=== PATIENT | female | born 2000 | race Caucasian/White ===

== ENCOUNTER 2022-06-06 16:39 | Emergency (ER) | payer OTHER, SELFPAY ==
[2022-06-06 17:02] VITALS: BP 137/86; PULSE 91; RESP 18; TEMP 36.4; O2SAT 99
--- NOTE | 2022-06-06 17:05 | ED.URI ---
HPI - URI/Sore Throat General Chief Complaint: Upper Respiratory Infection Stated Complaint: Sore Throat Time Seen by Provider: 06/06/22 17:05 History of Present Illness HPI Narrative: Merari Leger is a 21 yo female with no PMH who comes to here for sore throat to be swabbed for strep because she has a new job and she does not want to go and infect other people if she has strep Related Data Home Medications Medication Instructions Recorded Confirmed insulin regular human 8 unit 8 unit inhalation DIRECTED 06/06/22 06/06/22 (90)/12 unit (90) cartridge with inhaler (Afrezza (regular insulin)) Allergies Allergy/AdvReac Type Severity Reaction Status Date / Time No Known Allergies Allergy Verified 06/06/22 17:08 Review of Systems Review of Systems: CONSTITUTIONAL: Denies fever, chills, sweats. EYES: Denies visual changes, redness, discharge. ENT: Denies rhinorrhea, congestion, has sore throat, otalgia. CARDIOVASCULAR: Denies chest pain, palpitations, edema. RESPIRATORY: Denies dyspnea, wheezing, cough GASTROINTESTINAL: Denies abdominal pain, nausea, vomiting, diarrhea. GENITOURINARY: Denies dysuria, hematuria, abnormal discharge SKIN: Denies rash or itching. NEUROLOGIC: Denies numbness, or focal weakness. PSYCHIATRIC: Denies anxiety or depression. [facility] Past Medical History Medical History Bipolar 1 disorder Depression Diabetes Social History Social History (Updated 06/06/22 @ 17:08 by Lucero Rhodes CNP) Smoking status: Never smoker Substance use: current Comments At time of signature, I agree with nursing past medical, surgical, social and family history. There is no relevant family history pertinent to the presenting complaint. Exam Narrative: GENERAL: This is a well-nourished, well-developed patient, in mild distress. HEAD: normocephalic, atraumatic. EYES: PERRL. Sclera clear/white. Vision is grossly intact. EARS: External ears normal, auditory canals clear on R, erythema on L Is crazy on the weekends there is like nothing open over On 2 out of 1 really is hard to find any open and without drainage, TMs normal without perforation. Hearing grossly intact. NOSE: External nose normal without nasal discharge, nares without redness, no rhinorrhea. THROAT: Mucous membranes moist, posterior pharynx erythema NECK: Neck supple, non-tender CARDIOVASCULAR: Regular rate and rhythm without murmurs, gallops, or rubs. RESPIRATORY: Clear to auscultation. Breath sounds equal bilaterally. No wheezes, rales, or rhonchi. GASTROINTESTINAL: Not done SKIN: warm, intact with no suspicious lesions or rash, good texture and turgor. NEURO: awake, alert, and oriented to person, place and time. There were no obvious focal neurologic abnormalities. Steady gait EXTREMITIES: Normal range of motion. BACK: Nontender without deformity Course Course Emergency Course: Patient here for evaluation of sore throat strep test is negative Started on Flonase and Zyrtec Given work note for the morning Level of Care: Express Care Visit Vital Signs Vital signs: Vital Signs Temperature 97.6 F 06/06/22 17:02 Pulse Rate 91 06/06/22 17:02 Respiratory Rate 18 06/06/22 17:02 Blood Pressure 137/86 06/06/22 17:02 Pulse Oximetry 99 06/06/22 17:02 Oxygen Delivery Room Air 06/06/22 17:02 Temperature 97.6 F 06/06/22 17:02 Pulse Rate 91 06/06/22 17:02 Respiratory Rate 18 06/06/22 17:02 Blood Pressure 137/86 06/06/22 17:02 Pulse Oximetry 99 06/06/22 17:02 Oxygen Delivery Room Air 06/06/22 17:02 MDM - URI/Sore Throat Differential Diagnosis Differential diagnosis: Likely upper respiratory infection, viral infection, bronchitis, influenza and pharyngitis Lab Data Labs: Strep Screen Presumptive Negative *(Reference Range: Negative)* Critical Care Time Critic
== END 2022-06-06 17:22 | disposition home or self-care (01) ==
PROVIDERS: Emergency Provider Nurse Practitioner
DX: J02.9 Acute pharyngitis, unspecified (principal); E11.9 Type 2 diabetes mellitus without complications; Z79.4 Long term (current) use of insulin
CPT/HCPCS: 87081; 87880; 99203; G0463